=== PATIENT | female | born 1985 | race Caucasian/White ===

== ENCOUNTER 2021-10-13 21:49 | Emergency (ER) | payer OTHER ==
[~2021-10-13] VITALS: Ht 167.6 cm; Wt 92.5 kg
[2021-10-13 21:57] VITALS: BP 121/71
--- NOTE | 2021-10-13 21:57 | PHYS DOC ---
Adult General [facility] HPI Patient is a 36-year-old female presenting for right ankle pain. Injury onset was just prior to arrival. Patient was walking downstairs and missed the bottom x2 steps suffering step down injury without any appreciable inversion/eversion. Pain is focal to medial arch area and is sharp in nature, pain has been constant since onset and exacerbated with weightbearing. Reports associated paresthesias of toes distally otherwise no other associated symptoms. She has taken 800 mg ibuprofen prior to arrival with mild relief in symptoms. She is otherwise healthy and has been at baseline health Review of Systems Review of Systems Fourteen body systems of review of systems have been reviewed. See HPI for pertinent positives and negative responses, other zuleta all other systems are negative, non-pertinent or non-contributory Physical Exam Physical Exam Constitutional: Well developed, well nourished, no acute distress, non-toxic appearance. HENT: Normocephalic, atraumatic, bilateral external ears normal, oropharynx moist, no oral exudates, nose normal. Eyes: PERRLA, EOMI, conjunctiva normal, no discharge. Neck: Normal range of motion, no tenderness, supple, no stridor. Cardiovascular: Heart rate regular per monitor Lungs & Thorax: No respiratory distress or accessory muscle use, bilateral chest rise Abdomen: Abdomen soft, non-tender, bowel sounds present in all quadrants, no guarding or rebound, nonacute abdomen. Skin: Warm, dry, no erythema, no rash. Back: No tenderness, no CVA tenderness. Extremities: No cyanosis, no clubbing, antalgic gait when weightbearing on the right lower extremity. There is focal pain to palpation at base of fifth metatarsal and navicular bone on right foot with associated mild soft tissue swelling. No medial and/or lateral malleolus pain of right lower extremity. Remaining formal examinations of right lower extremity, soft interosseous tissue areas, and right knee unremarkable Neurologic: Alert and oriented X 3, grossly normal motor & sensory function, no focal deficits noted. Psychologic: Anxious affect and mood Current Patient Data Vital Signs Vital Signs Date Time Temp Pulse Resp B/P (MAP) Pulse Ox O2 Delivery O2 Flow Rate FiO2 10/13/21 21:57 99.2 89 16 121/71 (88) 96 Room Air Vital Signs Date Time Temp Pulse Resp B/P (MAP) Pulse Ox O2 Delivery O2 Flow Rate FiO2 10/13/21 21:57 99.2 89 16 121/71 (88) 96 Room Air EKG EKG [] Radiology/Procedures Radiology/Procedures Exam: Right foot 3 views INDICATION: Navicular pain TECHNIQUE: Frontal, lateral oblique views of the right foot Comparisons: None FINDINGS: Minimally displaced transverse fracture to the base of the fourth metatarsal. Mild overlying soft tissue swelling. Joint spaces are well-maintained. Bone mineralization is normal. IMPRESSION: Minimally displaced transverse fracture to the base of the fourth metatarsal. Electronically signed by: Maisha Adrian MD (10/13/2021 10:36 PM) [facility] Heart Score C/O Chest Pain: No Risk Factors: Risk Factors: DM, Current or recent (<one month) smoker, HTN, HLP, family history of CAD, obesity. Risk Scores: Risk Factors: DM, Current or recent (<one month) smoker, HTN, HLP, family history of CAD, obesity. Course & Med Decision Making Course & Med Decision Making ABCs unremarkable HPI physical exam and comprehensive ER work-up and radiographs concerning for fourth metatarsal fracture Appropriate posterior splint, nonweightbearing, pain control and close outpatient follow-up with college football coach recommended. Patient's foot reexamined by myself and intact to motor or sensory and neuro Dragon Disclaimer Dragon Disclaimer This electronic medical record was generated, in whole or in part, using a voice recognition dictation system. Departure Departure: Impression: Primary Impression: Metatarsal bone fracture Disposition: HOME / SELF CARE / HOMELESS Condition: STABLE Referrals: PCP,UNKNOWN (PCP) STEPHANIE BRAVO DPM Additional Instructions: You were seen for a fracture or broken bone. We recommend you follow-up with college football coach given your diagnosis. Their information is attached to your discharge packet. If you were provided a splint use this as directed. You should not use the affected body part until you follow up with orthopedics. Keep the area clean, dry, and avoid getting it wet. You should use ice, NSAIDs, and elevation to help with swelling and pain. Return to the ED if you develop worsening pain, numbness, tingling, weakness, fever, redness, or any other new or concerning symptoms. Scripts Hydrocodone Bit/Acetaminophen (HYDROCODONE-APAP 5-325 ) 1 Each Tablet 1 TAB PO PRN Q6HRS PRN for PAIN, #20 TAB 0 Refills Prov: JAY PIKE DO 10/13/21 JAY PIKE DO Oct 13, 2021 21:57
[2021-10-13] MEDS ORDERED: TERB250T PO (22:12)
[2021-10-13] MEDS ORDERED: LEVO1IUD3 IY (22:12)
[2021-10-13] MEDS ORDERED: ESCITALOPRAM OXA5 MG PO (22:12)
[2021-10-13] MEDS ORDERED: BUPR75TA5 PO (22:12)
[2021-10-13] MEDS ORDERED: HYDROcodone/APAP 5/325MG 1 TAB TABLET PO ONE (22:30)
--- NOTE | 2021-10-13 22:39 | RAD ---
Exam: Right foot 3 views INDICATION: Navicular pain TECHNIQUE: Frontal, lateral oblique views of the right foot Comparisons: None FINDINGS: Minimally displaced transverse fracture to the base of the fourth metatarsal. Mild overlying soft tis yonatan swelling. Joint spaces are well-maintained. Bone mineralization is normal. IMPRESSION: Minimally displaced transverse fracture to the base of the fourth metatarsal. Electronically signed by: Maisha Adrian MD (10/13/2021 10:36 PM) [facility]
[2021-10-13] MEDS ORDERED: HYDR-2155 PO (22:52)
[2021-10-14] MEDS ORDERED: START PACK - traMADol 1 STARTPACK TABLET PO ONE (00:30)
== END 2021-10-14 00:48 | disposition home or self-care (01) ==
LOC: ER 21:49
DX: S92.341A Displaced fracture of fourth metatarsal bone, right foot, initial encounter for closed fracture (principal); W10.8XXA Fall (on) (from) other stairs and steps, initial encounter; Y93.01 Activity, walking, marching and hiking; Y92.89 Other specified places as the place of occurrence of the external cause; Y99.8 Other external cause status
CPT/HCPCS: 73630; 99283-25

== ENCOUNTER → 2021-11-22 | Outpatient (CLI) | payer OTHER ==
[~2021-11-22] MED LIST: BUPR75TA5 PO; ESCITALOPRAM OXA5 MG PO; HYDR-2155 PO; LEVO1IUD3 IY; TERB250T PO
--- NOTE | 2021-11-25 08:58 | RAD ---
XR FOOT_RIGHT 3 VIEWS Clinical Indication: Reason: F/U FX Comparison: Right foot, 3 views October 13, 2021 Findings: There is mostly healed transverse fracture at the base of the fourth metatarsal. There is a dorsal me tallic staple spanning the second tarsal metatarsal joint. There is a screw fixating the medial cunei form and the base of the second metatarsal. No acute fracture. There is mild dorsal soft tissue swell ing overlying the metatarsal heads. No bone erosion is seen. The mineralization is normal. IMPRESSION: 1. Mostly healed fracture at the base of the fourth metatarsal. 2. There is new internal fixation hardware of the medial tarsal metatarsal joints. Electronically signed by: Kurtis Arevalo MD (11/25/2021 8:56 AM) [id number]
== END ==
LOC: RAD 13:43
PROVIDERS: ATTEND Podiatrist
DX: S93.324D Dislocation of tarsometatarsal joint of right foot, subsequent encounter (principal); M79.89 Other specified soft tissue disorders; M79.671 Pain in right foot; X58.XXXD Exposure to other specified factors, subsequent encounter; Z96.698 Presence of other orthopedic joint implants
CPT/HCPCS: 73630

== ENCOUNTER → 2021-12-27 | Outpatient (CLI) | payer OTHER ==
--- NOTE | 2021-12-27 15:12 | RAD ---
Right foot 3 views. HISTORY: Pain post surgery 3 views were taken of the right foot. There is a screw which is been advanced through the first cunei form into the second metatarsal. There is a staple which bridges the second cuneiform second metatars al joint. There is no acute fracture. There is no bony destructive process. There is no definite dickinson ge compared to the prior study from November 22. No other acute osseous abnormality is noted. IMPRESSION: 1. Previous surgery with fusion between the first and second cuneiforms and second metatarsal. 2. No fracture or new bony destructive process noted. 3. No other acute finding noted. Electronically signed by: Tray Richmond MD (12/27/2021 3:09 PM) [id number]
== END ==
LOC: RAD 14:35
PROVIDERS: ATTEND Podiatrist
DX: S93.324D Dislocation of tarsometatarsal joint of right foot, subsequent encounter (principal); S92.324D Nondisplaced fracture of second metatarsal bone, right foot, subsequent encounter for fracture with routine healing; X58.XXXD Exposure to other specified factors, subsequent encounter
CPT/HCPCS: 73630

== ENCOUNTER → 2022-01-10 | Outpatient (CLI) | payer OTHER ==
--- NOTE | 2022-01-10 16:14 | RAD ---
EXAM: XR FOOT_RIGHT 3 VIEWS 01/10/2022 3:21 PM CLINICAL INDICATION: Postop 2 months ago COMPARISON: Right foot radiograph 12/27/2021 TECHNIQUE: AP, oblique, and lateral views of the right foot FINDINGS: There are surgical changes of fusion across the Lisfranc interval and second TMT joint. Suraj dware is intact. Alignment is unchanged. There is a healing fourth metatarsal shaft fracture. No new osseous abnormality. IMPRESSION: Surgical changes of Lisfranc interval and second TMT joint fusion. Healing fourth metata rsal shaft fracture. Electronically signed by: Rachelle Israel MD (01/10/2022 4:12 PM) [id number]
== END ==
LOC: RAD 15:10
PROVIDERS: ATTEND Podiatrist
DX: S92.341D Displaced fracture of fourth metatarsal bone, right foot, subsequent encounter for fracture with routine healing (principal); T81.31XA Disruption of external operation (surgical) wound, not elsewhere classified, initial encounter; X58.XXXD Exposure to other specified factors, subsequent encounter; Z98.890 Other specified postprocedural states
CPT/HCPCS: 73630

== ENCOUNTER → 2022-02-07 | Outpatient (CLI) | payer OTHER ==
--- NOTE | 2022-02-07 16:22 | RAD ---
Exam: XR FOOT_RIGHT 3 VIEWS History: Right foot injury follow-up. Comparison: 10/13/2021, 01/10/2022 Findings: Osseous mineralization is normal. No acute fracture or dislocation. Postsurgical changes from Lisfran c injury repair with cannulated screw fixation of the medial cuneiform and proximal second metatarsal and dorsal staple fixation of the middle cuneiform and second metatarsal base. No persistent fractur e lucency identified in the base of the fourth metatarsal. Normal alignment. No focal soft tissue swe lling. Impression: 1. Expected postsurgical features from Lisfranc repair and healing fourth metatarsal. Electronically signed by: Serafin Bellamy MD (02/07/2022 4:19 PM) [id number]
== END ==
LOC: RAD 12:36
PROVIDERS: ATTEND Podiatrist
DX: S93.324D Dislocation of tarsometatarsal joint of right foot, subsequent encounter (principal); X58.XXXD Exposure to other specified factors, subsequent encounter; M79.671 Pain in right foot
CPT/HCPCS: 73630